=== PATIENT | male | born 1965 | race Caucasian/White ===

== ENCOUNTER 2018-08-09 23:30 | Emergency (ER) | payer OTHER ==
[2018-08-10 00:13] LABS: BASOPHILS # (AUTO) 0.1 10^3/uL (0.0-0.1); EOSINOPHILS # (AUTO) 0.2 10^3/uL (0.0-0.7); EOSINOPHILS % (AUTO) 2.5 %; HGB - HEMOGLOBIN 15.8 g/dL (14.0-18.0); LYMPHOCYTES # (AUTO) 2.7 10^3/uL (1.5-3.5); LYMPHOCYTES % (AUTO) 42.6 %; MEAN CORPUSCULAR HEMOGLOBIN 29.4 pg (27.0-31.0); MEAN CORPUSCULAR HGB CONC 33.7 g/dL (32.0-36.0); MEAN CORPUSCULAR VOLUME 87.3 fL (80.0-94.0); MEAN PLATELET VOLUME 6.6 fL (7.4-11.4); MONOCYTES # (AUTO) 0.6 10^3/uL (0.0-1.0); MONOCYTES % (AUTO) 9.5 %; NEUTROPHILS # (AUTO) 2.8 10^3/uL (1.5-6.6); NEUTROPHILS % (AUTO) 44.4 %; PLT - PLATELET COUNT 295 10^3/uL (130-450); RED BLOOD COUNT 5.39 10^6/uL (4.70-6.10); WHITE BLOOD COUNT 6.3 x10^3/uL (4.8-10.8)
[2018-08-10 00:15] LABS: BILIRUBIN,URINE NEGATIVE (NEGATIVE); GLUCOSE, URINE (UA) NEGATIVE (NEGATIVE); KETONES,URINE (UA) NEGATIVE (NEGATIVE); LEUKOCYTE ESTERASE, URINE NEGATIVE (NEGATIVE); NITRITE,URINE NEGATIVE (NEGATIVE); OCCULT BLOOD,URINE TRACE-INTA (NEGATIVE); PH,URINE 7.5 PH (5.0-7.5); PROTEIN,URINE NEGATIVE (NEGATIVE); UROBILINOGEN,URINE 0.2 (NORMAL) E.U./dL (NORMAL)
[2018-08-10 00:21] LABS: CLARITY,URINE CLEAR (CLEAR)
[2018-08-10 00:22] LABS: ALBUMIN 4.9 g/dL (3.2-5.5); ALBUMIN/GLOBULIN RATIO 1.4 (1.0-2.2); BILIRUBIN,TOTAL 0.6 mg/dL (0.2-1.0); CALCIUM 9.3 mg/dL (8.5-10.3); CREATININE 0.8 mg/dL (0.6-1.2); TOTAL PROTEIN 8.4 g/dL (6.7-8.2)
--- NOTE | 2018-08-10 00:23 | XRAY Report ---
Reason: chest pain Procedure Date: 08/10/2018 Accession Number: [id number] / [id number] Procedure: XR - Chest 1 View X-Ray CPT Code: 70820 FULL RESULT: EXAM: CHEST RADIOGRAPHY EXAM DATE: 08/10/2018 12:09 AM. CLINICAL HISTORY: Chest pain. COMPARISON: None. TECHNIQUE: 1 view. FINDINGS: Lungs/Pleura: No focal opacities evident. No pleural effusion. No pneumothorax. Mediastinum: Within exam limitations, the cardiomediastinal contour is normal. Other: None. IMPRESSION: Normal single view chest. RADIA
[2018-08-10] MEDS ORDERED: SODIUM CHLORIDE 0.9% 1,000 ML IV ONE (00:25)
[2018-08-10] MEDS ORDERED: NITROGLYCERIN 2% PASTE TOP STA (00:25)
--- NOTE | 2018-08-10 00:25 | ED Physician Documentation ---
PD HPI CHEST PAIN - Stated complaint Stated Complaint: CP - Chief complaint Chief Complaint: Cardiac - History obtained from History obtained from: Patient, Family - History of Present Illness Timing - onset: How many weeks ago (2) Timing - onset during: Rest Timing - duration: Weeks (2) Timing - details: Gradual onset, Still present Pain level max: 8 Pain level now: 6 Quality: Pressure, Tightness Location: Left chest Radiation: No: Jaw, Neck, Back, Abdominal, Left upper extremity, Right upper extremity Improved by: Nothing Worsened by: Other (nothing) Associated symptoms: No: Shortness of air, Diaphoresis, Nausea, Vomiting, Feeling faint / dizzy, General Weakness, Palpitations, Cough Similar symptoms before: Has not had sx before Recently seen: Not recently seen - Additional information Additional information: 52-year-old [place] male visiting from the [facility] has developed chest pain over the past 2 weeks that has been tolerable and is located in the left upper chest. He does not have any radiation he does not have any modifiable factors. Today his pain is worse his blood pressure is elevated and he is not tolerating the pain. Review of Systems Constitutional: denies: Fever, Myalgias Eyes: denies: Decreased vision Ears: denies: Ear pain Nose: denies: Rhinorrhea / runny nose, Congestion Throat: denies: Sore throat Cardiac: reports: Chest pain / pressure. denies: Palpitations, Pedal edema, Calf pain Respiratory: denies: Dyspnea, Cough GI: denies: Abdominal Pain, Nausea, Vomiting, Constipation, Diarrhea : denies: Dysuria, Frequency Skin: denies: Rash Musculoskeletal: denies: Neck pain, Back pain, Extremity pain Neurologic: denies: Generalized weakness, Focal weakness, Numbness PD PAST MEDICAL HISTORY - Past Medical History Past Medical History: Yes Cardiovascular: Hypertension, Atrial fibrillation Other Past Medical History: denies other - Past Surgical History Past Surgical History: No - Allergies Allergies/Adverse Reactions: Allergies Allergy/AdvReac Type Severity Reaction Status Date / Time No Known Drug Allergies Allergy Verified 08/09/18 23:36 - Social History Does the pt smoke?: No Smoking Status: Never smoker Does the pt drink ETOH?: Yes Does the pt have substance abuse?: No - Immunizations Immunizations are current?: No Immunizations: No immun PD ED PE NORMAL - Vitals Vital signs reviewed: Yes (tachy and hypertensive marked. 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, No motor deficit, No sensory deficit, Normal speech Eye Opening: Spontaneous Motor: Obeys Commands Verbal: Oriented GCS Score: 15 - Psych Psych: Normal affect, Other (mood is anxious) Results - Vitals Vitals: Vital Signs - 24 hr 08/09/18 08/10/18 08/10/18 23:34 00:02 00:30 Temperature 36.6 C Heart Rate 108 H 95 91 Respiratory 18 16 18 Rate Blood Pressure 199/115 H 176/102 H 203/117 H O2 Saturation 100 99 99 08/10/18 08/10/18 08/10/18 00:51 01:10 01:14 Temperature Heart Rate 95 92 87 Respiratory 16 16 Rate Blood Pressure 194/104 H 218/134 H 145/94 H O2 Saturation 98 08/10/18 08/10/18 08/10/18 01:15 02:09 03:08 Temperature Heart Rate 84 85 89 Respiratory 16 17 18 Rate Blood Pressure 146/93 H 130/90 H 145/86 H O2 Saturation 98 95 98 Oxygen O2 Source Room air - EKG (time done) 2335 Rate: Rate (enter#) (104) Rhythm: Sinus tachycardia, LAE QRS: LVH Ischemia: ST elevation c/w ischemia (isolated to V2 and V3 with depression in V5 and V6) Compare to prior EKG: Old EKG unavailable Computer interpretation: Disagree with computer (I do not see ST elevation in all V leads and I do not see flat T waves inferiorly. ) 0139 Rate: Rate (enter#) (87) Rhythm: NSR Compare to prior EKG: Changed from prior EKG (SPT [address] elevation in V2 adn V3 has resolved as have the critiera for LVH.) Computer interpretation: Agree with computer - Labs Labs: Laboratory Tests 08/09/18 08/09/18 08/09/18 23:45 23:45 23:45 WBC 6.3 RBC 5.39 Hgb 15.8 Hct 47.1 MCV 87.3 MCH 29.4 MCHC 33.7 RDW 13.0 Plt Count 295 MPV 6.6 L Neut # (Auto) 2.8 Lymph # (Auto) 2.7 [place] # (Auto) 0.6 Eos # (Auto) 0.2 Baso # (Auto) 0.1 Absolute Nucleated RBC 0.00 Nucleated RBC % 0.0 Sodium 138 Potassium 3.7 Chloride 99 L Carbon Dioxide 28 Anion Gap 11.0 BUN 13 Creatinine 0.8 Estimated GFR (MDRD) 101 Glucose 178 H Calcium 9.3 Total Bilirubin 0.6 AST 29 ALT 34 Alkaline Phosphatase 56 Troponin I < 0.04 Total Protein 8.4 H Albumin 4.9 Globulin 3.5 Albumin/Globulin Ratio 1.4 Lipase 39 Urine Color Urine Clarity Urine pH Ur Specific [place] Urine Protein Urine Glucose (UA) Urine Ketones Urine Occult Blood Urine Nitrite Urine Bilirubin Urine Urobilinogen Ur Leukocyte Esterase Ur Microscopic Review Urine Culture Comments 08/10/18 08/10/18 00:00 01:40 WBC RBC Hgb Hct MCV MCH MCHC RDW Plt Count MPV Neut # (Auto) Lymph # (Auto) [place] # (Auto) Eos # (Auto) Baso # (Auto) Absolute Nucleated RBC Nucleated RBC % Sodium Potassium Chloride Carbon Dioxide Anion Gap BUN Creatinine Estimated GFR (MDRD) Glucose Calcium Total Bilirubin AST ALT Alkaline Phosphatase Troponin I 0.29 Total Protein Albumin Globulin Albumin/Globulin Ratio Lipase Urine Color YELLOW Urine Clarity CLEAR Urine pH 7.5 Ur Specific [place] 1.010 Urine Protein NEGATIVE Urine Glucose (UA) NEGATIVE Urine Ketones NEGATIVE Urine Occult Blood TRACE-INTA Urine Nitrite NEGATIVE Urine Bilirubin NEGATIVE Urine Urobilinogen 0.2 (NORMAL) Ur Leukocyte Esterase NEGATIVE Ur Microscopic Review NOT INDICATED Urine Culture Comments NOT INDICATED - Rads (name of study) chest Radiology: Prelim report reviewed (Impression: Normal single view chest.), EMP read indepedently, See rad report Procedures - IVC sono (time) 2350 Bedside IVC sono: IVC measures (cm) (1.19), Dehydration (est 1 liter deficit) PD MEDICAL DECISION MAKING - ED course Complexity details: reviewed results, re-evaluated patient, considered differential, d/w patient, d/w family ED course: 52-year-old male presents with left sided chest pain without modifiable factors and without radiation diaphoresis or nausea and he has elevated blood pressure and is found to be dehydrated on interrogation the inferior vena cava. He is administered saline and an inch of Nitropaste his blood pressure comes down his pain resolves. electrocardiographic changes occur. Subtle ST elevation in V2 and V3 have resolved and the criteria for LVH has resolved as well. The patient's second troponin is elevated and Dr. Franco (Cardiology at [facility]) is consulted in the case and graciously agrees to accept the patient in transfer and recommends heparin, plavix 300, atrovostatin 40 and metoprolol tartrate 25. [facility] does not have a bed, [facility] is full as well and [facility] does have a bed. Dr. Frost hospitalist at [facility] is accepting. Departure - Departure Disposition: 02 Transfer Acute Care Hosp Clinical Impression: Myocardial infarction Qualifiers: Myocardial infarction type: non-ST elevation myocardial infarction Qualified Code(s): I21.4 - Non-ST elevation (NSTEMI) myocardial infarction Hypertensive cardiovascular disease Qualifiers: Heart failure presence: without heart failure Qualified Code(s): I11.9 - Hypertensive heart disease without heart failure Condition: Stable
[2018-08-10] MEDS: cloNIDine 0.1 MG TABLET PO STA ×2 (01:10→01:14)
[2018-08-10] MEDS ORDERED: METOPROLOL TARTRATE 50 MG TABLET PO STA (02:29)
[2018-08-10] MEDS ORDERED: HEPARIN 25000UNITS/500ML (D5W) 25,000 UNIT/500 ML BAG IV STA (02:29)
[2018-08-10] MEDS ORDERED: ATORVASTATIN 40 MG TABLET PO STA (02:30)
[2018-08-10] MEDS ORDERED: CLOPIDOGREL 300 MG TABLET PO STA (02:30)
[2018-08-10] MEDS ORDERED: ASPIRIN CHEW 81 MG TABLET PO STA (03:23)
[2018-08-10 04:11] VITALS: BP 129/89
== END 2018-08-10 04:10 | disposition short-term general hospital (02) ==
LOC: ED 23:30
DX: I21.4 Non-ST elevation (NSTEMI) myocardial infarction (principal); I11.9 Hypertensive heart disease without heart failure; E86.0 Dehydration
CPT/HCPCS: 36415; 51798; 71045; 80053; 81003; 83690; 84484; 85025; 93005; 96361; 96374; 99285; A9270; 81001; 87086

== ENCOUNTER 2018-08-10 04:10 | Outpatient (CLI) | payer OTHER | END 2018-08-10 04:11 | disposition short-term general hospital (02) | LOC: EMS 04:10 | PROVIDERS: ATTEND Surgery | DX: I21.4 Non-ST elevation (NSTEMI) myocardial infarction (principal) | CPT/HCPCS: A0425; A0426 ==